=== PATIENT | male | born 1985 | race Caucasian/White ===

== ENCOUNTER 2022-12-14 11:50 | Emergency (ER) | payer SELFPAY ==
[~2022-12-14] VITALS: Ht 182.9 cm; Wt 94.6 kg
[2022-12-14 12:29] VITALS: BP 147/78; PULSE 69; RESP 18; TEMP 97.1; O2SAT 98
[2022-12-14] MEDS ORDERED: KETOROLAC TROMETH 60MG/2ML VIAL IM ONE (14:00)
[2022-12-14] MEDS ORDERED: IBUP-1456 PO (14:34)
[2022-12-14] MEDS ORDERED: HYDR-4902 PO (14:35)
== END 2022-12-14 14:40 | disposition home or self-care (01) ==
LOC: ER 11:50
DX: S93.402A Sprain of unspecified ligament of left ankle, initial encounter (principal); X58.XXXA Exposure to other specified factors, initial encounter; Y93.89 Activity, other specified; Y92.89 Other specified places as the place of occurrence of the external cause; Y99.8 Other external cause status
CPT/HCPCS: 73610; 96372; 99283; J1885